=== PATIENT | female | born 2005 | race Asian ===

== ENCOUNTER 2024-02-26 14:42 | Outpatient (CLI) | payer OTHER, SELFPAY ==
[2024-02-26 16:47] LABS: Free T4 Free Thyroxine* 1.24 ng/dL (0.70-1.85)
[2024-02-28 06:35] LABS: TPO Antibody 0.8 IU/mL (0.0-9.0); Thyroglobulin Antibody <0.9 IU/mL (0.0-4.0)
[2024-02-28 06:59] LABS: Total T3 100 ng/dL (80-200)
== END 2024-02-26 14:43 | disposition home or self-care (01) ==
LOC: LAB 14:51
DX: E05.00 Thyrotoxicosis with diffuse goiter without thyrotoxic crisis or storm (principal)
CPT/HCPCS: 36415; 84439; 84443; 84480; 86376; 86800